=== PATIENT | male | born 1970 | race Two or more races ===

== ENCOUNTER 2017-12-20 12:14 | Emergency (ER) | payer MEDICAID ==
[~2017-12-20] VITALS: Ht 170.2 cm; Wt 80.7 kg
[2017-12-20 12:18] VITALS: Ht 170.2 cm; Wt 80.7 kg
[2017-12-20 14:15] VITALS: BP 139/94
== END 2017-12-20 14:15 | disposition home or self-care (01) ==
LOC: ED 12:14
DX: R07.89 Other chest pain (principal)

== ENCOUNTER 2019-07-01 20:40 | Emergency (ER) | payer MEDICAID ==
[~2019-07-01] VITALS: Ht 170.2 cm; Wt 79.2 kg
[2019-07-01 20:46] VITALS: Ht 170.2 cm; Wt 79.2 kg
[2019-07-01 21:23] LABS: BASOPHIL % 0.6 % (0-2); PLATELET COUNT 234 x10^3mcL (130-400); RED CELL DISTRIBUTION WIDTH 12.7 % (11.5-14.5)
[2019-07-01 21:33] LABS: CALCIUM 8.6 mg/dL (8.5-10.1); CARBON DIOXIDE 29.3 mmol/L (21-32); CHLORIDE SERUM 104 mmol/L (98-107); GFR1 > 60 mL/min; GLUCOSE SERUM 106 mg/dL (74-106); POTASSIUM SERUM 4.3 mmol/L (3.5-5.1); SODIUM SERUM 140 mmol/L (136-145)
[2019-07-01 21:37] LABS: ALBUMIN 4.2 g/dL (3.4-5.0); ALKALINE PHOSPHATASE 79 U/L (46-116); ALT/SGPT 27 U/L (16-63); AST/SGOT 10 U/L (15-37); BILIRUBIN TOTAL 0.54 mg/dL (0.20-1.00); TOTAL PROTEIN, SERUM 8.1 g/dL (6.4-8.2)
[2019-07-02 00:54] VITALS: BP 121/78
== END 2019-07-02 00:54 | disposition home or self-care (01) ==
LOC: ED 20:40
DX: R09.1 Pleurisy (principal)
CPT/HCPCS: 36415; 87804; J1885

== ENCOUNTER 2020-03-21 17:52 | Emergency (ER) | payer MEDICAID ==
[~2020-03-21] VITALS: Ht 170.2 cm; Wt 78.5 kg
[2020-03-21 18:03] VITALS: Ht 170.2 cm; Wt 78.5 kg
[2020-03-21 19:11] LABS: BASOPHIL % 0.5 % (0-2); PLATELET COUNT 226 x10^3mcL (130-400); RED CELL DISTRIBUTION WIDTH 12.6 % (11.5-14.5)
[2020-03-21 19:50] LABS: CALCIUM 8.6 mg/dL (8.5-10.1); CARBON DIOXIDE 29.4 mmol/L (21-32); CHLORIDE SERUM 105 mmol/L (98-107); CREATININE SERUM 0.9 mg/dL (0.7-1.3); GFR1 > 60 mL/min; GLUCOSE SERUM 102 mg/dL (74-106); POTASSIUM SERUM 3.6 mmol/L (3.5-5.1); SODIUM SERUM 141 mmol/L (136-145)
[2020-03-21 19:55] LABS: ALBUMIN 4.3 g/dL (3.4-5.0); ALKALINE PHOSPHATASE 73 U/L (46-116); ALT/SGPT 32 U/L (16-63); AST/SGOT 14 U/L (15-37); BILIRUBIN TOTAL 0.82 mg/dL (0.20-1.00); LIPASE 169 IU/L (73-393)
[2020-03-21 20:47] VITALS: BP 142/72
== END 2020-03-21 20:47 | disposition home or self-care (01) ==
LOC: ED 17:52
PROVIDERS: Emergency Medicine
DX: R10.13 Epigastric pain (principal)
CPT/HCPCS: J7030

== ENCOUNTER 2020-09-27 21:18 | Emergency (ER) | payer OTHER ==
[~2020-09-27] VITALS: Ht 170.2 cm; Wt 77.1 kg
[2020-09-27 21:26] VITALS: Ht 170.2 cm; Wt 77.1 kg
[2020-09-27 22:38] LABS: CALCIUM 9.2 mg/dL (8.5-10.1); CARBON DIOXIDE 29.5 mmol/L (21-32); CHLORIDE SERUM 105 mmol/L (98-107); CREATININE SERUM 0.7 mg/dL (0.7-1.3); GFR1 > 60 mL/min; GLUCOSE SERUM 101 mg/dL (74-106); POTASSIUM SERUM 3.6 mmol/L (3.5-5.1); SODIUM SERUM 143 mmol/L (136-145)
[2020-09-27 22:40] LABS: BASOPHIL % 0.5 % (0.2-1.5); PLATELET COUNT 211 x10^3mcL (152-348); RED CELL DISTRIBUTION WIDTH 13.1 % (12.1-16.2)
[2020-09-27 22:42] LABS: ALBUMIN 3.9 g/dL (3.4-5.0); ALKALINE PHOSPHATASE 87 U/L (46-116); ALT/SGPT 23 U/L (16-63); AST/SGOT 10 U/L (15-37); BILIRUBIN TOTAL 0.5 mg/dL (0.20-1.00); CHOLESTEROL 171 mg/dL (<200); TOTAL PROTEIN, SERUM 7.3 g/dL (6.4-8.2); TRIGLYCERIDES 153 mg/dL (<150)
[2020-09-27 22:52] LABS: CHOLESTEROL/HDL RATIO 5.5; HDL CHOLESTEROL 31 mg/dL (40-60)
[2020-09-27] MEDS ORDERED: MOT800 PO (23:41)
[2020-09-28 00:11] VITALS: BP 120/80
== END 2020-09-28 00:11 | disposition home or self-care (01) ==
LOC: ED 21:18
PROVIDERS: Specialist
DX: M79.602 Pain in left arm (principal); K21.9 Gastro-esophageal reflux disease without esophagitis
CPT/HCPCS: 83880